=== PATIENT | female | born 1985 | race African-American/Black ===

== ENCOUNTER 2020-04-20 09:02 | Emergency (ER) | payer MEDICAID, OTHER ==
[~2020-04-20] VITALS: Ht 154.9 cm; Wt 60.0 kg
[2020-04-20 09:15] VITALS: BP 151/80
[2020-04-20 10:57] LABS: CLARITY URINE CLEAR (CLEAR); COLOR URINE YELLOW (YELLOW); KETONES URINE NEGATIVE (NEGATIVE); LEUKOCYTE ESTERASE URINE 1+ (NEGATIVE); NITRITE URINE NEGATIVE (NEGATIVE); OCCULT BLOOD URINE NEGATIVE (NEGATIVE); PROTEIN URINE NEGATIVE (NEGATIVE); SPECIFIC GRAVITY URINE 1.012 (1.005-1.030); UROBILINOGEN URINE 0.2 E.U./dL (0.2-1.0)
== END 2020-04-20 10:25 | disposition left against medical advice (07) ==
LOC: ER 09:02
DX: R33.9 Retention of urine, unspecified (principal)
CPT/HCPCS: 81003; 81025; 99283